=== PATIENT | female | born 1975 | race American Indian/Alaskan Native ===

== ENCOUNTER 2017-12-27 05:57 | Emergency (ER) | payer MEDICAID ==
[2017-12-27 07:10] LABS: Basophils % (Auto) 0.6 % (0.0-1.8); Eosinophils % (Auto) 0.5 % (0.0-4.3); Hematocrit 43.1 % (30.3-42.9); Hemoglobin 14.4 gm/dl (10.1-14.3); Lymphocytes # (Auto) 1.3 K/mm3 (1.2-5.4); Lymphocytes % (Auto) 21.2 % (13.4-35.0); Mean Corpuscular HGB Conc 33 % (30-34); Mean Corpuscular Hemoglobin 29 pg (28-32); Mean Corpuscular Volume 86 fl (79-97); Monocytes # (Auto) 0.6 K/mm3 (0.0-0.8); Monocytes % (Auto) 9.5 % (0.0-7.3); Platelet Count 271 K/mm3 (140-440); Red Blood Count 5.01 M/mm3 (3.65-5.03); Red Cell Distribution Width 14.7 % (13.2-15.2)
[2017-12-27 07:33] LABS: Albumin 3.9 g/dL (3.9-5); BUN/Creatinine Ratio 18; Blood Urea Nitrogen 11 mg/dL (7-17); Calcium 8.8 mg/dL (8.4-10.2); Hemolysis Index 121
[2017-12-27 07:42] LABS: Alanine Aminotransferase 25 units/L (7-56)
[2017-12-27 07:43] LABS: Bacteria,Urine 1+ /HPF (Negative); Bilirubin,Urine NEG (Negative); Blood,Urine SM (Negative); Color,Urine Yellow (Yellow); Mucus,Urine FEW /HPF; Protein,Urine <15 mg/dL mg/dL (Negative); Urobilinogen,Urine < 2.0 mg/dL (<2.0)
[2017-12-27] MEDS ORDERED: MOTRIN ONE (08:21)
[2017-12-27] MEDS ORDERED: MOTRIN PO ONE (08:26)
[2017-12-27] MEDS ORDERED: PEPCID IV ONE (09:16)
[2017-12-27] MEDS ORDERED: TORADOL IV ONE (09:16)
[2017-12-27] MEDS ORDERED: BENTYL IM ONE (09:16)
[2017-12-27] MEDS ORDERED: ZOFRAN IV ONE (09:16)
[2017-12-27] MEDS ORDERED: NACL 0.9% 1000 ML 1,000 ML IV ONE (09:16)
--- NOTE | 2017-12-27 09:22 | Emergency Department Report ---
Blank Doc - Documentation Documentation: Patient is a 42-year-old [place] female who is presenting with 2 days of nausea vomiting diarrhea and lower abdominal pain. Patient's denies fever at this time. Patient also states has been no blood in her vomit or bowel movements. Patient's left wrist is within normal limits however the patient is in no significant distress. Patient will be moved to a treatment room for IV fluids and Zofran Pepcid and we'll do CT of her abdomen and pelvis to rule out any surgical conditions
--- NOTE | 2017-12-27 10:18 | Cat Scan Report ---
CT scan of abdomen and pelvis with IV contrast: History: Nausea vomiting and diarrhea, generalized abdominal pain. Findings: Normal lung bases. No pleural or pericardial effusion. Normal liver spleen pancreas and gallbladder. Normal adrenal glands kidneys and bladder. No free intraperitoneal fluid or air. No evidence of adenopathy. Normal aorta and origin of superior mesenteric artery and celiac artery. Fluid-filled loops of small bowel without bowel distention or wall thickening. Moderate amount of fluid and stool l in colon. Normal appendix. No evidence of diverticulitis. Impression: Fluid filled loops of small bowel and some fluid in colon probably suggestive of enteritis/diarrhea..
--- NOTE | 2017-12-27 10:50 | Emergency Department Report ---
ED N/V/D HPI - General Chief complaint: Pain General Stated complaint: COLD SX , FEVER Time Seen by Provider: 12/27/17 09:09 Source: patient Mode of arrival: Ambulatory Limitations: No Limitations - History of Present Illness Initial comments: Patient is a 42-year-old [place] Citizen female who is presenting with 1 to 2 days of nausea vomiting diarrhea and lower abdominal pain. Patient's denies fever at this time. Patient denies any blood in her vomit or in his stool. Patient's left wrist is within normal limits however the patient is in no significant distress. She reports abdominal pain and generalized body at 10 out of the 10 H cane generalized and cramping to her abdomen. Reports that she felt feverish. It had some coughing. Denies any urinary burning, frequency or urgency. 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 She is reporting some nasal congestion and runny nose but denies any coughing or shortness of breath. Denies any neck pain or stiffness. Medication taken at home for pain did not help. Pain is worse with movement and better with rest. 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 denies: myalgias, chest pain, cough, diaphoresis, headaches, malaise, rash, dysuria, shortness of breath, syncope, weakness - Related Data Previous Rx's Medication Instructions Recorded Last Taken Type Cetirizine HCl [ZyrTEC] 10 mg PO QAM 14 Days #14 capsule 12/27/17 Unknown Rx Dicyclomine [Bentyl] 40 mg PO Q8H 3 Days #9 tablet 12/27/17 Unknown Rx Famotidine [Pepcid] 20 mg PO BID 3 Days #6 tablet 12/27/17 Unknown Rx Potassium Chloride [K-Dur] 40 meq PO QDAY 2 Days #4 tablet 12/27/17 Unknown Rx Promethazine [Phenergan TAB] 25 mg PO Q6HR PRN #14 tab 12/27/17 Unknown Rx Allergies Allergy/AdvReac Type Severity Reaction Status Date / Time No Known Allergies Allergy Verified 12/27/17 08:28 ED Review of Systems ROS: Stated complaint: COLD SX , FEVER Other details as noted in HPI Comment: All other systems reviewed and negative Constitutional: chills, fever Eyes: denies: eye pain, eye discharge, vision change ENT: congestion. denies: ear pain, throat pain, epistaxis Respiratory: denies: cough, shortness of breath, wheezing Cardiovascular: denies: chest pain, palpitations, dyspnea on exertion, edema, syncope Gastrointestinal: abdominal pain, nausea, vomiting, diarrhea. denies: constipation, hematemesis, melena, hematochezia Genitourinary: denies: urgency, dysuria, frequency, hematuria, discharge Musculoskeletal: denies: back pain, joint swelling, arthralgia Skin: denies: rash Neurological: denies: headache, weakness, abnormal gait, vertigo ED Past Medical Hx - Past Medical History Previous Medical History?: Yes Hx Hypertension: Yes Hx Diabetes: Yes Additional medical history: "spinal disease" - Surgical History Past Surgical History?: Yes Additional Surgical History: R tube removal, fibrous tumor(s) - Family History Family history: diabetes, hypertension - Social History Smoking Status: Current Some Day Smoker Substance Use Type: None Other Social History: single, work - Medications Home Medications: Home Medications Medication Instructions Recorded Confirmed Last Taken Type Cetirizine HCl [ZyrTEC] 10 mg PO QAM 14 Days #14 capsule 12/27/17 Unknown Rx Dicyclomine [Bentyl] 40 mg PO Q8H 3 Days #9 tablet 12/27/17 Unknown Rx Famotidine [Pepcid] 20 mg PO BID 3 Days #6 tablet 12/27/17 Unknown Rx Potassium Chloride [K-Dur] 40 meq PO QDAY 2 Days #4 tablet 12/27/17 Unknown Rx Promethazine [Phenergan TAB] 25 mg PO Q6HR PRN #14 tab 12/27/17 Unknown Rx ED Physical Exam - General Limitations: No Limitations General appearance: alert, in no apparent distress - Head Head exam: Present: atraumatic, normocephalic, normal inspection - Eye Eye exam: Present: normal appearance, PERRL, EOMI Pupils: Present: normal accommodation - ENT ENT exam: Present: normal orophraynx, mucous membranes dry, normal external ear exam ( drainage.), other (maxillary and frontal sinus is nontender to palpate). Absent: TM's normal bilaterally (bilateral TM congested and red erythema and clear) - Neck Neck exam: Present: normal inspection, full ROM. Absent: tenderness, lymphadenopathy - Respiratory Respiratory exam: Present: normal lung sounds bilaterally. Absent: respiratory distress, wheezes, chest wall tenderness, accessory muscle use - Cardiovascular Cardiovascular Exam: Present: regular rate, normal rhythm, normal heart sounds. Absent: systolic murmur, diastolic murmur - GI/Abdominal GI/Abdominal exam: Present: soft, tenderness (mild tenderness in lower quadrants ), normal bowel sounds. Absent: distended, guarding, rebound, rigid, organomegaly, mass, bruit, pulsatile mass, hernia - Extremities Exam Extremities exam: Present: normal inspection, full ROM, normal capillary refill , other (no clubbing, cyanosis or edema. Distal pulses all extremities). Absent: tenderness, pedal edema, joint swelling, calf tenderness - Back Exam Back exam: Present: normal inspection, full ROM. Absent: tenderness, CVA tenderness (R), CVA tenderness (L) - Neurological Exam Neurological exam: Present: alert, oriented X3, normal gait - Psychiatric Psychiatric exam: Present: normal affect, normal mood - Skin Skin exam: Present: warm, dry, intact, normal color. Absent: rash ED Course Vital Signs 12/27/17 12/27/17 12/27/17 06:02 06:22 09:38 Temperature 98.2 F 98.2 F Pulse Rate 90 90 Respiratory 20 20 18 Rate Blood Pressure 142/92 142/92 O2 Sat by Pulse 100 100 Oximetry 12/27/17 09:59 Temperature Pulse Rate Respiratory 18 Rate Blood Pressure O2 Sat by Pulse Oximetry - Reevaluation(s) Reevaluation #1: 12/27/17 10:50 Patient was seen by Dr. Chase Medina and screened. She received Bentyl 20 mg IM, Pepcid 20 mg IV, Motrin 800 mg by mouth, Toradol 30 mg IV and was given bolus normal saline in emergency room, Zofran 4 mg IV. Up and reevaluation, patient says she is feeling much better. Her laboratory results suggest that she has hypokalemia with potassium was 3.2 and she'll be repleted. Reevaluation #2: 12/27/17 11:10 Patient given potassium 40 mEq by mouth 1 dose in emergency room. ED Medical Decision Making - Lab Data Result diagrams: 12/27/17 06:58 12/27/17 06:58 Lab Results 12/27/17 12/27/17 12/27/17 Range/Units 06:58 06:58 07:19 WBC 5.9 (4.5-11.0) K/mm3 RBC 5.01 (3.65-5.03) M/mm3 Hgb 14.4 H (10.1-14.3) gm/dl Hct 43.1 H (30.3-42.9) % MCV 86 (79-97) fl MCH 29 (28-32) pg MCHC 33 (30-34) % RDW 14.7 (13.2-15.2) % Plt Count 271 (140-440) K/mm3 Lymph % (Auto) 21.2 (13.4-35.0) % [place] % (Auto) 9.5 H (0.0-7.3) % Eos % (Auto) 0.5 (0.0-4.3) % Baso % (Auto) 0.6 (0.0-1.8) % Lymph # 1.3 (1.2-5.4) K/mm3 [place] # 0.6 (0.0-0.8) K/mm3 Eos # 0.0 (0.0-0.4) K/mm3 Baso # 0.0 (0.0-0.1) K/mm3 Seg Neutrophils % 68.2 (40.0-70.0) % Seg Neutrophils # 4.0 (1.8-7.7) K/mm3 Sodium 137 (137-145) mmol/L Potassium 3.2 L (3.6-5.0) mmol/L Chloride 96.9 L (98-107) mmol/L Carbon Dioxide 26 (22-30) mmol/L Anion Gap 17 mmol/L BUN 11 (7-17) mg/dL Creatinine 0.6 L (0.7-1.2) mg/dL Estimated GFR > 60 ml/min BUN/Creatinine Ratio 18 % Glucose 119 H (65-100) mg/dL POC Glucose 116 H (70-105) Calcium 8.8 (8.4-10.2) mg/dL Total Bilirubin 0.90 (0.1-1.2) mg/dL AST 27 (5-40) units/L ALT 25 (7-56) units/L Alkaline Phosphatase 64 (35-129) units/L Total Protein 7.6 (6.3-8.2) g/dL Albumin 3.9 (3.9-5) g/dL Albumin/Globulin Ratio 1.1 % Urine Color (Yellow) Urine Turbidity (Clear) Urine pH (5.0-7.0) Ur Specific [place] (1.003-1.030) Urine Protein (Negative) mg/dL Urine Glucose (UA) (Negative) mg/dL Urine Ketones (Negative) mg/dL Urine Blood (Negative) Urine Nitrite (Negative) Urine Bilirubin (Negative) Urine Urobilinogen (<2.0) mg/dL Ur Leukocyte Esterase (Negative) Urine WBC (Auto) (0.0-6.0) /HPF Urine RBC (Auto) (0.0-6.0) /HPF U Epithel Cells (Auto) (0-13.0) /HPF Urine Bacteria (Auto) (Negative) /HPF Urine Mucus /HPF 12/27/17 Range/Units Unknown WBC (4.5-11.0) K/mm3 RBC (3.65-5.03) M/mm3 Hgb (10.1-14.3) gm/dl Hct (30.3-42.9) % MCV (79-97) fl MCH (28-32) pg MCHC (30-34) % RDW (13.2-15.2) % Plt Count (140-440) K/mm3 Lymph % (Auto) (13.4-35.0) % [place] % (Auto) (0.0-7.3) % Eos % (Auto) (0.0-4.3) % Baso % (Auto) (0.0-1.8) % Lymph # (1.2-5.4) K/mm3 [place] # (0.0-0.8) K/mm3 Eos # (0.0-0.4) K/mm3 Baso # (0.0-0.1) K/mm3 Seg Neutrophils % (40.0-70.0) % Seg Neutrophils # (1.8-7.7) K/mm3 Sodium (137-145) mmol/L Potassium (3.6-5.0) mmol/L Chloride (98-107) mmol/L Carbon Dioxide (22-30) mmol/L Anion Gap mmol/L BUN (7-17) mg/dL Creatinine (0.7-1.2) mg/dL Estimated GFR ml/min BUN/Creatinine Ratio % Glucose (65-100) mg/dL POC Glucose (70-105) Calcium (8.4-10.2) mg/dL Total Bilirubin (0.1-1.2) mg/dL AST (5-40) units/L ALT (7-56) units/L Alkaline Phosphatase (35-129) units/L Total Protein (6.3-8.2) g/dL Albumin (3.9-5) g/dL Albumin/Globulin Ratio % Urine Color Yellow (Yellow) Urine Turbidity Clear (Clear) Urine pH 6.0 (5.0-7.0) Ur Specific [place] 1.013 (1.003-1.030) Urine Protein <15 mg/dl (Negative) mg/dL Urine Glucose (UA) Neg (Negative) mg/dL Urine Ketones Neg (Negative) mg/dL Urine Blood Sm (Negative) Urine Nitrite Neg (Negative) Urine Bilirubin Neg (Negative) Urine Urobilinogen < 2.0 (<2.0) mg/dL Ur Leukocyte Esterase Neg (Negative) Urine WBC (Auto) 2.0 (0.0-6.0) /HPF Urine RBC (Auto) 3.0 (0.0-6.0) /HPF U Epithel Cells (Auto) 5.0 (0-13.0) /HPF Urine Bacteria (Auto) 1+ (Negative) /HPF Urine Mucus Few /HPF Urine culture sent - Radiology Data Radiology results: report reviewed CT scan of the abdomen and pelvis with IV contrast reveals fluid-filled loops of small bowel and some fluid in the colon probably suggestive of enteritis diarrhea. Appendix is normal and there are no evidence of diverticulitis. - Medical Decision Making MDM: ED course: Patient here with 2-3 days of nausea vomiting and diarrhea and also reported in cold symptoms with congestion and runny nose. 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 She says she is unable to keep anything down and she has diarrhea every time she eats. Patient abdominal exam normal except for minimal tenderness to her lower quadrants. Urinalysis 1+ bacteria and she is asymptomatic and urine culture sent. CBC stable, chemistry stable except for potassium is 3.2 and she was repleted with 40 mEq of potassium. Patient was given IV fluids, Bentyl, Zofran, Toradol, ibuprofen and Pepcid and emergency room and she says she felt a lot better. She'll be discharged home on Bentyl, Pepcid and Phenergan. Diagnosis: Nasal congestion and rhinorrhea-Stable Nausea vomiting and diarrhea and intractable-better Abdomen pain not intractable-better Nicotine abuse-education Hypokalemia : Potassium 3.2 and was given repleted with 40 mEq Enteritis-better Labs and diagnosis: CBC stable, CMP stable except for her potassium was 3.2 and she was repleted with potassium., Urinalysis stable except she had 1+ bacteria and some blood but she was asymptomatic and culture sent. Patient's CT scan revealed that she has enteritis/diarrhea. Please refer to laboratory and radiology section for details Medication in the emergency room: Patient was given Bentyl 20 mg IM, Pepcid 20 mg IV, ibuprofen 800 mg by mouth, Toradol 30 mg IV. She was given sodium chloride 1 L IV and Zofran 4 mg IV and upon reevaluation she says she felt a lot better. Her potassium is 3.2 and she was repleted with 40 mEq of potassium. Discharge medication: Zyrtec, Bentyl, Phenergan and Pepcid and K-Dur Education: Smoking cessation encouraged. He was given information on discharge and shocked him paperwork for smoking cessation. Brat diet. Educated on medication that was given. Increase his fluid intake over the next 72 hours and fluids that are rich in potassium. 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 - Differential Diagnosis appendicitis, diverticulitis, IBS, UTI, food poisoning, viral syndrome Critical care attestation.: If time is entered above; I have spent that time in minutes in the direct care of this critically ill patient, excluding procedure time. ED Disposition Clinical Impression: Enteritis, Nausea vomiting and diarrhea, Hypokalemia, Upper respiratory infection, acute, Asymptomatic bacteriuria, Nicotine abuse Abdominal pain Qualifiers: Abdominal location: lower abdomen, unspecified Qualified Code(s): R10.30 - Lower abdominal pain, unspecified Disposition: - TO HOME OR SELFCARE Is pt being admited?: No Does the pt Need Aspirin: No Condition: Stable Instructions: Abdominal Pain (ED), Acute Nausea and Vomiting (ED), Nutrition Tips for Relief of Diarrhea (ED), Acute Diarrhea (ED), Gastroenteritis (ED), Hypokalemia (ED), How to Stop Smoking (ED) Additional Instructions: Please increase her fluid intake to 2-3 L of water/Gatorade daily. Over the next 3 days please eat diet consisted of banana, rice, applesauce and toast. Avoid spicy foods and carbonated beverages. Follow-up with primary care physician in 2 days Practice good hand hygiene Take medication as prescribed If his condition worsens, please return to the emergency room The discharge instruction in smoking cessation Eat food rich in potassium such as bananas and cantaloupes. See discharge instructions. Prescriptions: Cetirizine HCl [ZyrTEC] 10 mg PO QAM 14 Days #14 capsule Dicyclomine [Bentyl] 40 mg PO Q8H 3 Days #9 tablet Famotidine [Pepcid] 20 mg PO BID 3 Days #6 tablet Potassium Chloride [K-Dur] 40 meq PO QDAY 2 Days #4 tablet Promethazine [Phenergan TAB] 25 mg PO Q6HR PRN #14 tab PRN Reason: nausea and vomiting Referrals: LORETO JACOBSEN MD [Primary Care Provider] - 12/29/17 [facility] [Provider Group] - 12/29/17 Forms: Work/School Release Form(ED)
[2017-12-27] MEDS ORDERED: K-DUR PO ONE (10:52)
[2017-12-27 12:09] VITALS: BP 147/80
== END 2017-12-27 11:45 | disposition home or self-care (01) ==
LOC: ED 05:57
DX: K52.9 Noninfective gastroenteritis and colitis, unspecified (principal); J06.9 Acute upper respiratory infection, unspecified; I10 Essential (primary) hypertension; E11.65 Type 2 diabetes mellitus with hyperglycemia; F17.200 Nicotine dependence, unspecified, uncomplicated
CPT/HCPCS: 36415; 74177; 80053; 81001; 82962; 85025; 87086; 96361; 96372; 96374; 96375; 99284; J0500; J1885; J2405; J7030; Q9967

== ENCOUNTER 2019-02-10 12:12 | Emergency (ER) | payer MEDICARE ==
[2019-02-10 12:18] VITALS: BP 151/90
--- NOTE | 2019-02-10 12:23 | Emergency Department Report ---
ED Rash HPI - HPI Chief Complaint: Skin Rash Stated Complaint: RASH Time Seen by Provider: 02/10/19 12:18 Rash Symptoms: Yes Itching, No Facial Swelling, No Tongue/Oral Swelling, No Breathing Difficulties, No Choking Sensation, No Wheezing/Dyspnea, No Peeling, No Blistering, No Fever, No Lightheaded, No Malaise, No Myalgias Severity: mild Other History: pt is a 43 yo female who presents with a rash to the that began 3-4 days. she states it is itching. states she has been taking benadryl and calamine lotion. no allergies. no new lotions, soaps, detergents, makeup, food. no one else with same rash. denies any insect bite. states she noticed after being outside. PMHx DM, HTN, anxiety. no allergies to medications. ED Review of Systems ROS: Stated complaint: RASH Other details as noted in HPI Comment: All other systems reviewed and negative ED Past Medical Hx - Past Medical History Previous Medical History?: Yes Hx Hypertension: Yes Hx Diabetes: Yes (type 2) Additional medical history: "spinal disease", uterine fibroids - Surgical History Past Surgical History?: Yes Additional Surgical History: R tube removal, back surgery, uterine fibroids - Social History Smoking Status: Current Every Day Smoker Substance Use Type: Alcohol, Marijuana, Prescribed - Medications Home Medications: Home Medications Medication Instructions Recorded Confirmed Last Taken Type Cetirizine HCl [ZyrTEC] 10 mg PO QAM 14 Days #14 capsule 12/27/17 Unknown Rx Dicyclomine [Bentyl] 40 mg PO Q8H 3 Days #9 tablet 12/27/17 Unknown Rx Famotidine [Pepcid] 20 mg PO BID 3 Days #6 tablet 12/27/17 Unknown Rx Potassium Chloride [K-Dur] 40 meq PO QDAY 2 Days #4 tablet 12/27/17 Unknown Rx Promethazine [Phenergan TAB] 25 mg PO Q6HR PRN #14 tab 12/27/17 Unknown Rx Dicyclomine [Bentyl] 10 mg PO QID #15 capsule 04/27/18 Unknown Rx Ondansetron [Zofran Odt] 4 mg PO Q8HR PRN #10 tab.rapdis 04/27/18 Unknown Rx traMADol [Ultram] 50 mg PO Q6HR PRN #10 tablet 04/27/18 Unknown Rx Hydrocortisone [Hydrocortisone 1 applicatio TP BID #1 oint...g. 02/10/19 Unknown Rx 2.5% OINT] diphenhydrAMINE [Benadryl CAP] 25 mg PO Q6HR PRN #20 capsule 02/10/19 Unknown Rx Rash Exam - Exam General: Vital signs noted. No distress. Alert and acting appropriately. HEENT: No Periorbital Edema, No Conjuctival Injection, No Chemosis, No Perioral Edema, No Tongue Edema, No Uvular Edema, No Compromised Airway, No Drooling Lungs: Yes Good Air Exchange, No Wheezes, No Ronchi, No Stridor, No Cough, No La bored Respirations, No Retractions, No Use of Accessory Muscles, No Other Abnormal Lung Sounds Skin: Yes Urticarial Rash (left upper extremity ), Yes Other (small papules to t he UE and chest ), No Maculopapular Rash, No Morbilliform rash, No Bulla(e), No Excoriations, No Weeping, No Tenderness, No Erythema, No Edema, No Encrustations ED Course Vital Signs 02/10/19 12:14 Temperature 97.9 F Pulse Rate 74 Respiratory 18 Rate Blood Pressure 151/90 O2 Sat by Pulse 99 Oximetry ED Medical Decision Making - Lab Data Vital Signs 02/10/19 12:14 Temperature 97.9 F Pulse Rate 74 Respiratory 18 Rate Blood Pressure 151/90 O2 Sat by Pulse 99 Oximetry - Medical Decision Making pt is a 43 yo female who presents with a rash to the that began 3-4 days. she states it is itching. states she has been taking benadryl and calamine lotion. no allergies. no new lotions, soaps, detergents, makeup, food. no one else with same rash. denies any insect bite. states she noticed after being outside. PMHx DM, HTN, anxiety. no allergies to medications. examination consistent with allergic reaction/contact dermatitis. no difficulty breathing, no facial edema, no tongue edema, no uvular edema, no angioedema. vitals are stable. will give pt steroid cream and benadryl. advised to take as prescribed. do not put steroid cream on face. follow up with PCP in the next 3 days. return to the emergency room for any new or worsening symptoms. - Differential Diagnosis contact dermatitis, irritant dermatitis, allergic reaction Critical care attestation.: If time is entered above; I have spent that time in minutes in the direct care of this critically ill patient, excluding procedure time. ED Disposition Clinical Impression: Contact dermatitis Qualifiers: Contact dermatitis type: unspecified Contact dermatitis trigger: unspecified trigger Qualified Code(s): L25.9 - Unspecified contact dermatitis, unspecified cause Disposition: TO HOME OR SELFCARE Is pt being admited?: No Does the pt Need Aspirin: No Condition: Stable Instructions: Contact Dermatitis (ED) Additional Instructions: Please use medication as prescribed. continue using benadryl as needed for itching. may use calamine lotion as well. follow up with your primary care doctor in the next 2-3 days. return to the emergency room for any new or worsening symptoms. Prescriptions: diphenhydrAMINE [Benadryl CAP] 25 mg PO Q6HR PRN #20 capsule PRN Reason: Itching Hydrocortisone [Hydrocortisone 2.5% OINT] 1 applicatio TP BID #1 oint...g. [facility] - [facility]3 Days [facility] [Provider Group] - 2-3 Days Time of Disposition: 12:27 Print Language: MARTINIQUAIS
== END 2019-02-10 12:37 | disposition home or self-care (01) ==
LOC: ED 12:12
DX: L25.9 Unspecified contact dermatitis, unspecified cause (principal); I10 Essential (primary) hypertension; E11.9 Type 2 diabetes mellitus without complications; F17.200 Nicotine dependence, unspecified, uncomplicated; F12.90 Cannabis use, unspecified, uncomplicated; Z79.899 Other long term (current) drug therapy
CPT/HCPCS: 99282